=== PATIENT | female | born 1955 | race Caucasian/White ===

== ENCOUNTER 2019-11-03 07:41 | Outpatient (CLI) | payer OTHER ==
[2019-11-03] MEDS ORDERED: Morphine 2 MG/ML SYRINGE ONE (11:24)
[2019-11-03] MEDS ORDERED: Sodium Chloride 0.9% 10 ML ONE (11:24)
--- NOTE | 2019-11-03 14:05 | NM ---
EXAM: NM Hida Scan W Drug PROVIDED CLINICAL HISTORY: Right upper quadrant abdominal pain and pressure for 6 months. Pain is worse after eating. Reported c holelithiasis noted on outside ultrasound examination which is not available for evaluation. COMPARISON: None FINDINGS: There is normal uptake and excretion of radiotracer by the liver. Bowel activity is faintly visualize d in the proximal small bowel by 35 minutes with increasing activity within the bowel. No bowel activity is seen after 60 minutes of imaging. Additional imaging was performed after the administrati on of 2 mg of morphine sulfate, IV, and an additional 2 mCi of technetium 99m mebrofenin was also injected following morphine injection. Additional imaging was performed up to 30 minutes with increas ing activity in bowel. However, again, there is no uptake seen within the gallbladder. IMPRESSION: 1. Absence of gallbladder uptake suggesting cystic duct obstruction or cholecystitis. 2. No evidence of a common duct obstruction.
== END 2019-11-03 07:42 | disposition home or self-care (01) ==
LOC: NM 07:41
PROVIDERS: ATTEND Internal Medicine
DX: K80.80 Other cholelithiasis without obstruction (principal); R93.2 Abnormal findings on diagnostic imaging of liver and biliary tract
CPT/HCPCS: 78227; A9537; J2270

== ENCOUNTER 2019-11-03 18:32 | Observation (INO) | payer OTHER ==
[2019-11-03] MEDS ORDERED: Ondansetron PF 4 MG/2 ML Vial ONE (19:00)
[2019-11-03] MEDS ORDERED: Morphine 4 MG/ML VIAL ONE ×2 (19:00→22:55)
[2019-11-03 19:18] LABS: #Basophils 0.1 thou/uL (0.0-0.2); #Eosinphils 0.1 thou/uL (0.0-0.7); #Lymphocytes 2.4 thou/uL (1.20-3.40); #Monocytes 0.7 thou/uL (0.11-0.59); #Neutrophils 5.6 thou/uL (1.40-6.50); %Eosinophils 0.9 % (0.0-10.0); %Lymphocytes 27.3 % (21.0-51.0); %Monocytes 7.4 % (0.0-10.0); %Neutrophils 63.4 % (42.0-75.0); Mean Corpuscular HGB CONC 33.1 g/dL (32.0-36.0); Mean Corpuscular Hemoglobin 29.1 pg (27.0-31.0); Mean Corpuscular Volume 87.9 fL (78.0-98.0); Mean Platelet Volume 8.1 fL (7.4-10.4); Platelet Count 298 thou/uL (130-400); Red Blood Cell (RBC) Count 4.48 mill/uL (4.20-5.40); White Blood Cell (WBC) Count 8.8 thou/uL (4.8-10.8)
[2019-11-03 19:43] LABS: ALT (SGPT) 14 U/L (8-55); AST (SGOT) 19 U/L (5-34); Albumin 4.2 g/dL (3.4-4.8); Alkaline Phosphatase 63 U/L (40-110); Anion Gap 12 mmol/L (10-20); BUN (Urea Nitrogen) 23 mg/dL (9.8-20.1); Bilirubin, Total 0.4 mg/dL (0.2-1.2); Calc. Creatinine Clearance 0 mL/min (70-130); Calcium 9.3 mg/dL (7.8-10.44); Carbon Dioxide 22 mmol/L (23-31); Chloride 108 mmol/L (98-107); Estimated GFR-MDRD 69; Globulin 3.3 g/dL (2.4-3.5); Glucose 97 mg/dL (80-115); Lipase 18 U/L (8-78); Potassium 3.9 mmol/L (3.5-5.1); Protein, Total 7.5 g/dL (6.0-8.3); Sodium 138 mmol/L (136-145)
[2019-11-03 20:09] LABS: Bilirubin Negative (Negative); Blood, Urine 2+ (Negative); Clarity Turbid (Clear); Glucose, Urine (Dipstick) Normal (Negative); Leukocyte 500 Leu/uL (Negative); Nitrite Negative (Negative); Protein, Urine (Dipstick) 20 mg/dL (Neg-Trace); Squamous Epithelial 0-3 HPF (0-3); WBC/HPF Greater than 50 HPF (0-3)
[2019-11-03 20:30] LABS: Bacteria/HPF 2+ HPF (None Seen); Mucous/LPF 2+ LPF (<2+)
--- NOTE | 2019-11-03 20:44 | PDOC.GSCN ---
Surgery Consult: HPI - Consult details Date: 11/03/19 Time: 20:42 Reason for consult: abdominal pain History of present illness: 11/03/19 20:42 63yo female with 6 month history of RUQ pain associated with nausea. The pain is described as stabbing and radiating to the back. Over the last week it has become progressively worse. She presented to her PCP and underwent a HIDA scan earlier in the day that demonstrated an occluded cystic duct. Since that time, her pain has been much more severe and her nausea has been persistent. Surgery Consult: ROS - Review of Systems All systems: 10 systems reviewed and no additional complaints unless stated below. 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 negative: moderate distress, severe distress, well nourished, moderate pain, no pain, severe pain, cachectic, chronically ill, obese, other Eye: negative: normal ocular movement, PERRL, pale, icteric, deviation, loss of movement, other ENT: negative: no congestion, no hearing loss, normal mucosa, normal nares, normal pinna, decreased hearing, deviated nasal septum, nasal discharge, poor chcf, dentures, mucosal exudate, other Neck: negative: no bruits, no lymphadectomy, no masses, no deja distention, trachea midline, diffuse goiter, deviated trachea, limited ROM, other Respiratory: negative: clear to auscultation, clear to percussion, normal expansion, normal respiratory effort, other Abdomen: soft, tender (RUQ, positive holcomb's sign) Hernia: none Neurologic: negative: normal coordination, normal sensation, disoriented, combative, deep tendon reflexes, confused, memory loss, other Musculoskeletal: other (well healed left shoulder incision). negative: normal gait, normal posture Psychiatric: negative: memory intact, oriented to time, oriented to person, oriented to place, speech is normal, other Surgery Consult: Meds - Medications Medications: Plavix, levothroxine, Vitamin D, Methadone - Allergies Allergies/Adverse Reactions: Allergies Allergy/AdvReac Type Severity Reaction Status Date / Time NSAIDS (Non-Steroidal Allergy Severe Hives Verified 11/03/19 20:47 Anti-Inflamma [id number] Reductase Allergy Severe Hives Verified 11/03/19 20:47 Inhibitor Surgery Consult: Results - Labs Result Diagrams: 11/03/19 19:06 11/03/19 19:06 Lab results: Laboratory Results WBC 8.8 thou/uL (4.8-10.8) 11/03/19 19:06 RBC 4.48 mill/uL (4.20-5.40) 11/03/19 19:06 Hgb 13.0 g/dL (12.0-16.0) 11/03/19 19:06 Hct 39.4 % (36.0-47.0) 11/03/19 19:06 MCV 87.9 fL (78.0-98.0) 11/03/19 19:06 MCH 29.1 pg (27.0-31.0) 11/03/19 19:06 MCHC 33.1 g/dL (32.0-36.0) 11/03/19 19:06 RDW 12.0 % (11.5-14.5) 11/03/19 19:06 Plt Count 298 thou/uL (130-400) 11/03/19 19:06 MPV 8.1 fL (7.4-10.4) 11/03/19 19:06 Neutrophils % 63.4 % (42.0-75.0) 11/03/19 19:06 Lymphocytes % 27.3 % (21.0-51.0) 11/03/19 19:06 Monocytes % 7.4 % (0.0-10.0) 11/03/19 19:06 Eosinophils % 0.9 % (0.0-10.0) 11/03/19 19:06 Basophils % 1.0 % (0.0-1.0) 11/03/19 19:06 Neutrophils # 5.6 thou/uL (1.40-6.50) 11/03/19 19:06 Lymphocytes # 2.4 thou/uL (1.20-3.40) 11/03/19 19:06 Monocytes # 0.7 thou/uL (0.11-0.59) H 11/03/19 19:06 Eosinophils # 0.1 thou/uL (0.0-0.7) 11/03/19 19:06 Basophils # 0.1 thou/uL (0.0-0.2) 11/03/19 19:06 Sodium 138 mmol/L (136-145) 11/03/19 19:06 Potassium 3.9 mmol/L (3.5-5.1) 11/03/19 19:06 Chloride 108 mmol/L (98-107) H 11/03/19 19:06 Carbon Dioxide 22 mmol/L (23-31) L 11/03/19 19:06 Anion Gap 12 mmol/L (10-20) 11/03/19 19:06 BUN 23 mg/dL (9.8-20.1) H 11/03/19 19:06 Creatinine 0.83 mg/dL (0.6-1.1) 11/03/19 19:06 Estimated GFR (MDRD) 69 11/03/19 19:06 Glucose 97 mg/dL (80-115) 11/03/19 19:06 Calcium 9.3 mg/dL (7.8-10.44) 11/03/19 19:06 Total Bilirubin 0.4 mg/dL (0.2-1.2) 11/03/19 19:06 AST 19 U/L (5-34) 11/03/19 19:06 ALT 14 U/L (8-55) 11/03/19 19:06 Alkaline Phosphatase 63 U/L (40-110) 11/03/19 19:06 Serum Total Protein 7.5 g/dL (6.0-8.3) 11/03/19 19:06 Albumin 4.2 g/dL (3.4-4.8) 11/03/19 19:06 Globulin 3.3 g/dL (2.4-3.5) 11/03/19 19:06 Albumin/Globulin Ratio 1.3 g/dL (1.2-2.2) 11/03/19 19:06 Lipase 18 U/L (8-78) 11/03/19 19:06 Urine Color Yellow (Yellow) 11/03/19 19:53 Urine Clarity Turbid (Clear) A 11/03/19 19:53 Urine pH 5.0 (5.0-9.0) 11/03/19 19:53 Ur Specific [place]well 1.030 (1.002-1.036) 11/03/19 19:53 Urine Protein 20 mg/dL (Neg-Trace) 11/03/19 19:53 Urine Glucose (UA) Normal mg/dL (Negative) 11/03/19 19:53 Urine Ketones 10 mg/dL (Negative) A 11/03/19 19:53 Urine Blood 2+ (Negative) A 11/03/19 19:53 Urine Nitrite Negative (Negative) 11/03/19 19:53 Urine Bilirubin Negative (Negative) 11/03/19 19:53 Urine Urobilinogen 2.0 mg/dL (Less than 2) A 11/03/19 19:53 Ur Leukocyte Esterase 500 Herbert/uL (Negative) A 11/03/19 19:53 Urine RBC 11-20 HPF (0-3) A 11/03/19 19:53 Urine WBC Greater than 50 HPF (0-3) A 11/03/19 19:53 Ur Squamous Epith Cells 0-3 HPF (0-3) 11/03/19 19:53 Urine Bacteria 2+ HPF (None Seen) A 11/03/19 19:53 Urine Mucus 2+ LPF (<2+) A 11/03/19 19:53 - Radiology Interpretation Other Additional comments: HIDA scan demonstrates cystic duct occlusion Surgery Consult: A/P - Problem (1) Acute cholecystitis Current Visit: Yes Code(s): K81.0 - ACUTE CHOLECYSTITIS Status: Acute - Plan Plan: Place in observation Plan for laparoscopic cholecystectomy tomorrow. Consent obtained.
[2019-11-03] MEDS ORDERED: Ondansetron ODT 4 MG TAB PO PRN (20:54)
[2019-11-03] MEDS ORDERED: HYDROcodone/Acetaminophen 5/325 mg Tablet PO PRN (20:54)
[2019-11-03] MEDS ORDERED: Ondansetron PF 4 MG/2 ML Vial IVP PRN (20:54)
--- NOTE | 2019-11-03 21:24 | RAD ---
EXAM: Chest Two Views 11/03/2019 9:21 PM HISTORY: Preoperative evaluation COMPARISON: None. FINDINGS: Heart: Normal in size and contour. Pulmonary vessels: Normal. Costophrenic angles: Clear. Lungs: No acute airspace consolidation. Pneumothorax: None. Osseous structures:There is a calcified lesion within the proximal right humeral metaphysis without g ross evidence of surrounding bone destruction most consistent with a low-grade chondroid lesion. Additional findings: None. IMPRESSION: No significant acute intrathoracic disease.
[2019-11-04 01:21] VITALS: BMI 25.7
[2019-11-04] MEDS ORDERED: Acetaminophen 325 MG TAB PO PRN (01:29)
[2019-11-04] MEDS ORDERED: Morphine 2 MG/ML SYRINGE SLOW IVP PRN (01:33)
[2019-11-04] MEDS ORDERED: Morphine 4 MG/ML VIAL SLOW IVP PRN (01:33)
[2019-11-04] MEDS ORDERED: Lidocaine 1% PF 5 ML VIAL ONE (10:18)
[2019-11-04] MEDS ORDERED: Ondansetron PF 4 MG/2 ML Vial ONE ×3 (10:18→13:51)
[2019-11-04] MEDS ORDERED: Rocuronium Bromide 10 MG/ML (10ML VIAL) ONE (10:18)
[2019-11-04] MEDS ORDERED: PROPOFOL 200 MG/20 ML VIAL ONE (10:18)
[2019-11-04] MEDS ORDERED: Dexamethasone 20 MG/5 ML VIAL ONE (10:18)
[2019-11-04] MEDS ORDERED: ePHEDrine/0.9% NaCl/PF SYRINGE 50 mg/10 ml ONE (10:18)
[2019-11-04] MEDS ORDERED: Iothalamate Meglumine 60% 50 ML VIAL FS ONE (11:06)
[2019-11-04] MEDS ORDERED: Lidocaine 1% w/Epinephrine 1:100K 20 ML VIAL ONE (11:06)
[2019-11-04] MEDS ORDERED: Iopamidol 0 ML ONE (11:06)
[2019-11-04] MEDS ORDERED: Bupivacaine 0.25% HCL 30 ML VIAL ONE (11:06)
[2019-11-04] MEDS ORDERED: Fentanyl 100 MCG/2 ML VIAL ONE ×6 (11:18→14:29)
[2019-11-04] MEDS ORDERED: Ondansetron HCl/PF 4 MG/2 ML Vial IVP PRN (13:24)
[2019-11-04] MEDS ORDERED: PACU-Morphine 4MG/ML VIAL SLOW IVP PRN (13:24)
[2019-11-04] MEDS ORDERED: Promethazine HCl 25 MG/ML VIAL SLOW IVP PRN (13:24)
[2019-11-04] MEDS ORDERED: Promethazine HCl 25 MG/ML VIAL IM PRN (13:24)
[2019-11-04] MEDS ORDERED: HYDROmorphone 2 MG/ML VIAL SLOW IVP PRN (13:24)
[2019-11-04] MEDS ORDERED: Promethazine HCl 25 MG/ML VIAL ONE (13:32)
[2019-11-04 15:19] VITALS: TEMP 97.4
--- NOTE | 2019-11-04 15:23 | PDOC.BPN ---
- Brief Progress Note DOS: 11/04/19 0745 SUBJECTIVE: Doing well, no acute complaints OBJECTIVE: Vital Signs (12 hours) Temp Pulse Resp BP BP Pulse Ox 11/04/19 14:45 97.4 F L 72 18 146/78 H 100 11/04/19 08:00 97.7 F 72 18 117/67 97 11/04/19 04:00 98 F 74 16 101/63 97 Weight Admit Weight 149 lb 14.629 oz Weight 149 lb 14.629 oz EXAM: Alert and oriented, NAD CTAB ABD S/ND, TTP RUQ positive Junior's sign No new labs A/P 63yo F with acute cholecystitis. Plan for lap robert this morning.
--- NOTE | 2019-11-04 15:26 | PDISCHARGE ---
Discharge - Patient Instructions Pre-Printed Education: Laparoscopic Cholecystectomy, Care After, [id number] Additional Instructions: Activity as tolerated May shower Regular diet - Referrals and PCP Follow-Up Referrals and PCP Follow-Up: Nicko Dunbar MD [Active] - 10 Days (Call to make an appointment) Yomaira Perry MD [Primary Care Provider] - - Activity Instructions Activity:: Activity as Tolerated - Nourishment Instructions Nourishment:: Regular Diet - IV Therapy Instructions IV Therapy:: Not Applicable
[2019-11-04 16:22] VITALS: BP 128/64
--- NOTE | 2019-11-04 21:39 | DIS ---
DATE OF ADMISSION: 11/03/2019 DATE OF DISCHARGE: 11/04/2019 ADMISSION DIAGNOSIS: Acute cholecystitis. DISCHARGE DIAGNOSIS: Acute cholecystitis. OPERATIVE PROCEDURES: Laparoscopic cholecystectomy with intraoperative cholangiogram. HOSPITAL COURSE: The patient presented to the emergency department with right upper quadrant pain. She had recently underwent a HIDA scan earlier that day at the direction of her primary care provider. She was found to have a grossly normal laboratory analysis; however, she had physical exam findings consistent with acute cholecystitis. Given her positive HIDA scan, she was placed on observation overnight and scheduled for surgery the following morning. On November 04, 2019, she was taken to the operating room, where she underwent laparoscopic cholecystectomy with intraoperative cholangiogram. Her cholangiogram showed massively dilated common bile duct (previously reported as chronic) with no filling defects. Postoperatively, she was returned to the floor. On the floor, she has ambulated early in her postoperative course. She was advanced to a regular diet. Later on postoperative day #0, she was tolerating regular diet, ambulating independently, voiding spontaneously, and her pain was well controlled with analgesia. She was appropriate for discharge. DISCHARGE DISPOSITION: Home. DISCHARGE MEDICATIONS: 1. Resume home vitamin D3. 2. Resume home Plavix. 3. Resume home levothyroxine. 4. Resume home methadone. 5. Resume home meclizine. 6. Start tramadol 50 mg p.o. every 6 hours as needed for pain (hold methadone dose when taking tramadol). DISCHARGE INSTRUCTIONS: 1. May shower. 2. Regular diet. 3. Contact the Surgery Clinic or report to the emergency department for increasing abdominal pain, nausea, vomiting, or high heart rate. 4. Follow up with Dr. Dunbar in 1 to 2 weeks. Please call for an appointment ([phone]). Job ID: [id number]
[2019-11-05] MEDS ORDERED: Enoxaparin Sodium 40 MG/0.4 ML SYRINGE SC SCH (09:00)
--- NOTE | 2019-11-05 16:19 | OP ---
DATE OF PROCEDURE: 11/04/2019 ANESTHESIA: General endotracheal. PREOPERATIVE DIAGNOSIS: Acute cholecystitis. POSTOPERATIVE DIAGNOSIS: Acute cholecystitis. INDICATIONS: 63-year-old female with acute cholecystitis. DESCRIPTION OF PROCEDURE: The patient was brought to the operating room and positioned supine on the operating room table. After induction of general, endotracheal anesthesia, the patient was prepared and draped in the usual fashion. Prior to beginning the procedure, a complete time-out was performed with all members of the operative team being present and in agreement. Access to the abdomen was obtained in the right upper quadrant using Optiview trocar under direct visualization. The abdomen was insufflated. The abdomen was inspected and inflammatory changes were noted around the gallbladder. Additional trocars were placed under direct visualization. The gallbladder was found to be densely adherent to the surrounding omentum. This was taken down gently with electrocautery. The fundus of the gallbladder was retracted and the patient was noted to have an abnormally large common bile duct. The fundus of the gallbladder and the triangle of Calot were dissected until the critical view of safety was achieved. A Lfoton catheter was used to occlude the fundus of the gallbladder and a cholangiogram performed. This demonstrated grossly dilated common bile duct and cystic duct. There was no evidence of obstruction. Once the cholangiogram was complete, the cystic artery was divided between clips. The cystic duct was also divided between clips. Given its large diameter, 2 PDS Endoloop's were also applied. The gallbladder was then removed from the liver bed with electrocautery. At the completion of case, all sponge and instruments counts were correct. ESTIMATED BLOOD LOSS: 20 mL. SPECIMEN: Gallbladder. INTRAOPERATIVE BLOOD TRANSFUSIONS: None. COMPLICATIONS: None. DISPOSITION: The patient was transported to the postoperative recovery unit in good condition. Job ID: [id number]
--- NOTE | 2019-11-06 07:56 | RAD ---
Intraoperative cholangiogram 4 views: DATE: 11/06/2019 HISTORY: 63-year-old female undergoing cholecystectomy. FINDINGS: The first 2 images of the right side of the abdomen demonstrate no contrast in the biliary system. Th ird image demonstrates early filling of dilated cystic duct. The fourth image demonstrates a large number of filling defects within a significantly dilated cystic duct. The common bile duct, common he patic duct, and right hepatic duct, and its branches, are also dilated. No filling defect within common bile duct. Contrast in duodenum. Collection of contrast to the left of origin of common hepati c duct within a dilated viscus of unknown identity. Apparent stenosis of the inferior portion of the right hepatic duct. Contrast is too faint in the common hepatic duct to evaluate for filling defe cts. IMPRESSION: 1. Choledocholithiasis with large number of gallstones in a significantly dilated cystic duct. 2. Apparent stenosis of inferior portion of right hepatic duct. 3. Diffuse dilation of all visualized, opacified portions of the biliary tree.
== END 2019-11-04 18:15 | disposition home or self-care (01) ==
LOC: ERS 18:32 → 3SE 21:08
PROVIDERS: ADMIT Surgery; ATTEND Surgery
PROC: 0FT44ZZ Resection of Gallbladder, Percutaneous Endoscopic Approach (ICD-10-PCS; principal; 2019-11-04)
PROC: BF121ZZ Fluoroscopy of Gallbladder using Low Osmolar Contrast (ICD-10-PCS; 2019-11-04)
DX: K80.12 Calculus of gallbladder with acute and chronic cholecystitis without obstruction (principal); E03.9 Hypothyroidism, unspecified; F17.290 Nicotine dependence, other tobacco product, uncomplicated; G89.29 Other chronic pain; M54.9 Dorsalgia, unspecified; Z79.899 Other long term (current) drug therapy; Z86.73 Personal history of transient ischemic attack (TIA), and cerebral infarction without residual deficits; Z88.0 Allergy status to penicillin; Z88.6 Allergy status to analgesic agent; Z88.8 Allergy status to other drugs, medicaments and biological substances
CPT/HCPCS: 47532; 71046; 80053; 81003; 81015; 83690; 85025; 88304; 96374; 96375; 96376; G0378; J0690; J1100; J2001; J2270; J2405; J2550; J2704; J3010; Q9967; S0020

== ENCOUNTER 2019-11-30 01:02 | Observation (INO) | payer OTHER ==
[2019-11-30] MEDS ORDERED: Ondansetron PF 4 MG/2 ML Vial ONE (01:13)
[2019-11-30] MEDS ORDERED: Morphine 4 MG/ML VIAL ONE ×2 (01:36→02:25)
[2019-11-30 01:53] LABS: #Basophils 0.1 thou/uL (0.0-0.2); #Eosinphils 0.1 thou/uL (0.0-0.7); #Lymphocytes 1.9 thou/uL (1.20-3.40); #Neutrophils 13.4 thou/uL (1.40-6.50); %Basophils 0.5 % (0.0-1.0); %Eosinophils 0.3 % (0.0-10.0); %Lymphocytes 11.6 % (21.0-51.0); %Monocytes 5.9 % (0.0-10.0); %Neutrophils 81.7 % (42.0-75.0); Hemoglobin 13.1 g/dL (12.0-16.0); Mean Corpuscular HGB CONC 34.9 g/dL (32.0-36.0); Mean Corpuscular Hemoglobin 30.5 pg (27.0-31.0); Mean Corpuscular Volume 87.2 fL (78.0-98.0); Mean Platelet Volume 8.5 fL (7.4-10.4); Platelet Count 337 thou/uL (130-400); RBC Distribution Width 12.1 % (11.5-14.5); Red Blood Cell (RBC) Count 4.31 mill/uL (4.20-5.40); White Blood Cell (WBC) Count 16.4 thou/uL (4.8-10.8)
[2019-11-30 01:56] LABS: Bacteria/HPF None Seen HPF (None Seen); Bilirubin Negative (Negative); Blood, Urine 1+ (Negative); Clarity Turbid (Clear); Glucose, Urine (Dipstick) Normal (Negative); Leukocyte 500 Leu/uL (Negative); Nitrite Negative (Negative); Protein, Urine (Dipstick) 10 mg/dL (Neg-Trace); Squamous Epithelial None Seen HPF (0-3); Urobilinogen 12 mg/dL (Less than 2); WBC/HPF 21-50 HPF (0-3)
[2019-11-30 02:04] LABS: ALT (SGPT) 201 U/L (8-55); AST (SGOT) 460 U/L (5-34); Albumin 4.2 g/dL (3.4-4.8); Alkaline Phosphatase 100 U/L (40-110); Anion Gap 15 mmol/L (10-20); BUN (Urea Nitrogen) 19 mg/dL (9.8-20.1); Calc. Creatinine Clearance 0 mL/min (70-130); Carbon Dioxide 24 mmol/L (23-31); Chloride 103 mmol/L (98-107); Estimated GFR-MDRD 68; Globulin 3.6 g/dL (2.4-3.5); Glucose 169 mg/dL (80-115); Lipase 32 U/L (8-78); Potassium 3.6 mmol/L (3.5-5.1); Protein, Total 7.8 g/dL (6.0-8.3); Sodium 138 mmol/L (136-145)
[2019-11-30] MEDS ORDERED: cefTRIAXone\\ROCEPHIN 1 GM VIAL ONE (02:15)
[2019-11-30] MEDS ORDERED: Promethazine HCl 25 MG/ML VIAL ONE (02:25)
[2019-11-30] MEDS ORDERED: Fentanyl 100 MCG/2 ML VIAL ONE (04:36)
[2019-11-30 04:59] VITALS: BMI 25.7
[2019-11-30] MEDS ORDERED: Ondansetron PF 4 MG/2 ML Vial IVP PRN (05:04)
[2019-11-30] MEDS ORDERED: Ondansetron ODT 4 MG TAB SL PRN ×2 (05:04→17:57)
[2019-11-30] MEDS ORDERED: Sodium Chloride 0.9% 1,000 ML IV SCH ×2 (05:15→10:31)
[2019-11-30] MEDS: Morphine 4 MG/ML VIAL SLOW IVP PRN ×4 (05:46→20:22)
--- NOTE | 2019-11-30 07:59 | CT ---
PRELIMINARY REPORT/[facility]/EMERGENCY AFTER HOURS PROCEDURE: EXAM: CT Abdomen and Pelvis with Intravenous Contrast CLINICAL HISTORY: ER 2... Reports epigastric abd pain radiating outward with associated n/v since 1999 today. Denies f ever, diarrhea, or urinary symptoms. Pt had cholecystectomy 1 month ago secondary to cholecystitis. P t also had a fall 1 week ago. Surgical hx of hysterectomy; appendectomy TECHNIQUE: Axial computed tomography images of the abdomen and pelvis with intravenous contrast. CONTRAST: With; ISOVUE 370, 80ml COMPARISON: None provided. FINDINGS: LUNG BASES: No basilar airspace consolidation or pleural effusion. LIVER: Unremarkable. GALLBLADDER AND BILE DUCTS: The gallbladder is absent. Marked intrahepatic biliary duct dilatation is present. The common bile duct measures 1.5 cm. PANCREAS: Unremarkable. SPLEEN: Unremarkable. ADRENAL GLANDS: Unremarkable. KIDNEYS, URETERS, AND BLADDER: 1 mm calculus lower pole right kidney. No hydronephrosis of either kid radu. Bladder is normal. STOMACH AND BOWEL: No obstruction. No wall thickening. No CT evidence of colitis or acute diverticuli tis. APPENDIX: Appendix is absent. PERITONEUM: No free fluid. No free air. LYMPH NODES: No lymphadenopathy. REPRODUCTIVE: Uterus is absent. VASCULATURE: No aortic aneurysm. BONES: No fracture or suspicious osseous abnormality. ABDOMINAL WALL AND SOFT TISSUES: Unremarkable. IMPRESSION: Biliary duct dilatation. This may be postprocedural in nature. However, there are no comparison exams to determine stability. ELECTRONICALLY SIGNED BY: Gabriella Soto MD Nov 30, 2019 3:09:58 AM [employer] This report is intended for review by the ordering physician only, in accordance of law. If you recei ve this report in error, please call [facility] at [phone]. FINAL REPORT EMERGENCY AFTER HOURS CT ABDOMEN AND PELVIS WITH CONTRAST: FINDINGS/IMPRESSION: I agree with the findings and impression given in the preliminary report per [facility] physici an. There is enlargement of the common bile duct and central intrahepatic biliary tree. This may be a res ervoir effect from prior cholecystectomy. Correlate with LFTs.
--- NOTE | 2019-11-30 12:08 | HP ---
CHIEF COMPLAINT: Right upper quadrant abdominal pain. HISTORY OF PRESENT ILLNESS: The patient is a 64-year-old female, who underwent a laparoscopic cholecystectomy with cholangiogram on November 04. She was discharged later that day and did well for about a week. Then, she had an episode of severe pain, thought to be just postoperative, but then this past few days, she had recurrence of that pain that was severe and so she came to the emergency room. She reports nausea and vomiting. No jaundice. PAST MEDICAL HISTORY: Significant for hypothyroidism, history of CVA in 2017, and history of DVT in the left leg. PAST SURGICAL HISTORY: Laparoscopic cholecystectomy, nine needs surgeries on the right, seven on the left; appendectomy; left shoulder surgery; two back surgeries; foot surgery; and facial surgery. MEDICATIONS: 1. Vitamin D. 2. Levothyroxine. 3. She is on Plavix, but she has been off for a week. ALLERGIES: SHE HAS ALLERGIES TO PENICILLIN, PREDNISONE, NON-STEROIDALS, TYLENOL, AND STATINS. PHYSICAL EXAMINATION: VITAL SIGNS: Temperature 97.9, pulse 89, and blood pressure 149/82. GENERAL: She is awake, alert, in minimal distress. HEENT: No jaundice. LUNGS: Clear. HEART: Regular rate and rhythm. ABDOMEN: Soft. Mild tenderness in the right upper quadrant. Incisions are healing well. LABORATORY DATA: White count is 16, H and H of 13 and 37, and platelet count 337. Electrolytes show elevated glucose at 169. T-bili was normal at 1.0, AST of 460, and ALT of 201. IMAGING DATA: She had a CT scan of the abdomen that shows extrahepatic biliary dilatation. She did have an intraoperative cholangiogram that showed multiple filling defects within the dilated biliary tree that were consistent with choledocholithiasis. ASSESSMENT: Possible choledocholithiasis. PLAN: GI consultation for possible ERCP. Job ID: [id number]
--- NOTE | 2019-11-30 12:15 | CON ---
DATE OF CONSULTATION: 11/30/2019 CHIEF COMPLAINT: Abdominal pain. HISTORY OF PRESENT ILLNESS: Ms. Angelica Hernandez is a 64-year-old woman, who underwent laparoscopic cholecystectomy back on 11/04/2019. She presented last night around 8:00 p.m. with severe aching epigastric, initially periumbilical pain then located more to the right upper quadrant and radiated to her right back. The pain has been constant and hurts with any movement and has been severe, which she rates 10/10 in severity. She vomited a few times when the pain initially started last night. She had subjective fever and was noted to have an elevated white blood cell count on presentation. She has had no diarrhea, constipation, or blood in the stool. The pain is similar to the pain that she had prior to her gallbladder surgery. She underwent laparoscopic cholecystectomy on 11/04/2019. Intraoperative cholangiogram at that time showed what appears to be filling defects in the common bile duct and a question of a stricture over in the right hepatic duct. The duct was dilated, but her liver tests were normal at the time. She has been given morphine for the pain here with some improvement. PAST MEDICAL HISTORY: 1. She has chronic pain and is on chronic opioids for that. She had a stroke in 2017 and DVT while she was on some type of blood thinner at that time. She has been on Plavix since then due to the history of stroke. A week ago, she fell, has what sounds more like a syncopal episode and broke her nose and hit her head. She was found to have some "minute amount of bleeding on the brain." She was admitted to the intensive care unit and the only intervention at that time was to hold her Plavix. She has been off the Plavix now for a week that hospitalization was at [facility]. 2. Hypothyroidism. PAST SURGICAL HISTORY: Knee surgery. She had a face surgery, shoulder surgery, foot surgery, and laparoscopic cholecystectomy recently. SOCIAL HISTORY: Rare alcohol use. She vapes. No drugs. FAMILY HISTORY: Negative for GI malignancy. MEDICATIONS: Prior to admission: 1. Plavix has been held for the last week. 2. Levothyroxine. 3. Methadone 10 mg daily. 4. Tramadol as needed. ALLERGIES: NSAIDS, ASPIRIN, AND STATIN. REVIEW OF SYSTEMS: Negative x10 systems reviewed, except as stated in the history of present illness. PHYSICAL EXAMINATION: VITAL SIGNS: Temperature is 97.9, pulse 89, and blood pressure 149/82. GENERAL: She is in no acute distress. Alert and oriented x3. LUNGS: Clear to auscultation bilaterally. HEART: Regular rate and rhythm without murmur. ABDOMEN: Tender in the right upper quadrant to light palpation. She is nontender in the left abdomen without guarding. Her bowel sounds are present. EXTREMITIES: No lower extremity edema. She has bruising around her eyes. She has no cervical or supraclavicular lymphadenopathy. HEENT: Eyes have no scleral icterus. Her oropharynx is clear without lesions. LABORATORY DATA: White blood cell count 16.4, hemoglobin 13.1, platelets 337. Creatinine 0.84. Bilirubin 1.0, AST 460, ALT 201, alkaline phosphatase 100, albumin 4.2, lipase 32. Her labs back from November 03, 2019 showed a bilirubin of 0.4, AST of 19, ALT of 14, and alkaline phosphatase of 63. IMAGING: Showed a CT scan of the abdomen and pelvis, which showed dilation of the intrahepatic ducts as well as the common bile duct. IMPRESSION: 1. Choledocholithiasis. The patient presents with elevated transaminases and abrupt onset of right upper quadrant abdominal pain. Review of the intraoperative cholangiogram suggests filling defects and a question of a stricture up in the right hepatic duct. Her white blood cell count is elevated. Her bilirubin and alkaline phosphatase, however, are normal. If she truly had a chronic stricture in her bile duct, I would not expect a normal alkaline phosphatase. Also if she had cholangitis, this would be unlikely in the setting of a normal bilirubin. At this point, I will request an MRI to better delineate the anatomy and particularly regarding a question of stricture in the right hepatic system prior to proceeding with endoscopic retrograde cholangiopancreatography. 2. Recent fall with a reported intracranial hemorrhage, for which she was admitted to the ICU a week ago at [facility]. Her Plavix has been held for the last week. 3. Chronic pain, on chronic opioids. RECOMMENDATIONS: 1. MRCP now. 2. Anticipate ERCP to follow. 3. She receive ceftriaxone 1 g at 2 o'clock this morning. We will continue ceftriaxone at this time. Job ID: [id number]
--- NOTE | 2019-11-30 13:17 | MRI ---
MRI Abdomen W WO Con History: Abdominal pain Comparison: CT abdomen and pelvis same day Findings: Multiplanar multisequence MRI of the abdomen was performed prior to and after the intraveno us administration of contrast. No significant pleural effusion. There is a intrahepatic or extrahepatic biliary dilatation to the le wan of the ampulla for which appears be a small stricture. No choledocholithiasis. No abnormal biliary enhancement. No mass. No evidence for cholangitis. Trace subcapsular collection along the right hepatic border axial image 22 series 22 likely sequelae of prior surgery. The aortic contour is normal. The spleen is normal with a small splenule. No abnormal enhancing pancr eatic mass. No pancreatic ductal dilatation. No pancreatic of biliary mild junction. Low insertion of the cystic duct. The cystic duct is dilated. No evidence for bile leak. Adrenal glands unremarkable. Background bone marrow signal is maintained. No dilated loops of bowel in the abdomen. Impression: 1. Intrahepatic and extra hepatic biliary dilatation as well as dilatation of the cystic duct which h as a low insertion. No obstructing mass or choledocholithiasis. There is focal narrowing of the common bile duct near the ampulla just before the pancreatic duct insertion. ERCP recommended with di latation and possible sphincterotomy as necessary. No pancreatic ductal dilatation or pancreaticobiliary maljunction. 2. No abnormal biliary enhancement to suggest cholangitis. 3. Trace peripherally enhancing collection along the right hepatic capsule axial image 22 of series 2 2 likely sequelae of recent surgery. This is likely less than 2 mL volume of fluid. 4. No other abnormality within the abdomen.
[2019-11-30] MEDS ORDERED: Iopamidol-370 76% 500 ML 1 ML ONE (13:24)
[2019-11-30] MEDS: Sodium Chloride 0.9% 1,000 ML IV SCH (17:28)
[2019-11-30] MEDS ORDERED: Morphine 4 MG/ML VIAL SLOW IVP PRN (17:58)
[2019-11-30] MEDS: Ondansetron PF 4 MG/2 ML Vial SLOW IVP PRN (22:04)
[2019-12-01] MEDS: Morphine 4 MG/ML VIAL SLOW IVP PRN ×2 (03:08→14:48)
[2019-12-01] MEDS: Sodium Chloride 0.9% 1,000 ML IV SCH ×3 (03:09→20:04)
[2019-12-01 05:22] LABS: #Eosinphils 0.2 thou/uL (0.0-0.7); #Neutrophils 9.7 thou/uL (1.40-6.50); %Basophils 0.4 % (0.0-1.0); %Lymphocytes 8.5 % (21.0-51.0); %Monocytes 8.5 % (0.0-10.0); %Neutrophils 80.6 % (42.0-75.0); INR-International Normal Ratio 1.2; Mean Corpuscular HGB CONC 33.4 g/dL (32.0-36.0); Mean Corpuscular Hemoglobin 29.8 pg (27.0-31.0); Mean Corpuscular Volume 89.4 fL (78.0-98.0); Mean Platelet Volume 8.3 fL (7.4-10.4); Platelet Count 229 thou/uL (130-400); Prothrombin Time 15.6 SEC (12.0-14.7); RBC Distribution Width 12.5 % (11.5-14.5); Red Blood Cell (RBC) Count 3.37 mill/uL (4.20-5.40)
[2019-12-01 05:57] LABS: ALT (SGPT) 295 U/L (8-55); AST (SGOT) 241 U/L (5-34); Albumin 3.2 g/dL (3.4-4.8); Alkaline Phosphatase 99 U/L (40-110); Anion Gap 13 mmol/L (10-20); BUN (Urea Nitrogen) 12 mg/dL (9.8-20.1); Bilirubin, Total 3.4 mg/dL (0.2-1.2); Calc. Creatinine Clearance 81 mL/min (70-130); Calcium 8.8 mg/dL (7.8-10.44); Carbon Dioxide 20 mmol/L (23-31); Chloride 108 mmol/L (98-107); Estimated GFR-MDRD 79; Globulin 2.8 g/dL (2.4-3.5); Glucose 93 mg/dL (80-115); Potassium 3.6 mmol/L (3.5-5.1); Sodium 137 mmol/L (136-145)
[2019-12-01] MEDS: Ondansetron PF 4 MG/2 ML Vial SLOW IVP PRN (08:41)
[2019-12-01] MEDS ORDERED: Iothalamate Meglumine 60% 50 ML VIAL FS ONE (11:20)
[2019-12-01] MEDS ORDERED: SUGAMMADEX SODIUM 200 MG/2 ML VIAL ONE (11:23)
[2019-12-01] MEDS ORDERED: Fentanyl 100 MCG/2 ML VIAL ONE ×2 (11:23→12:42)
[2019-12-01] MEDS ORDERED: PROPOFOL 200 MG/20 ML VIAL ONE (11:49)
[2019-12-01] MEDS ORDERED: Lidocaine 1% PF 5 ML VIAL ONE (11:49)
[2019-12-01] MEDS ORDERED: Rocuronium Bromide 10 MG/ML (10ML VIAL) ONE (11:49)
--- NOTE | 2019-12-01 12:32 | RAD ---
ERCP: 12/01/2019 COMPARISON: None HISTORY: Biliary dilatation FINDINGS: 4 images are provided. There is contrast media within a dilated common bile duct and within dilated intrahepatic biliary ducts. The distal CBD and mid CBD is not well assessed as it is not fully opacified with contrast media on the provided images. IMPRESSION: Nonspecific dilation of the intrahepatic and extrahepatic hepatic biliary tree as above.
--- NOTE | 2019-12-01 16:01 | OP ---
DATE OF PROCEDURE: 12/01/2019 PROCEDURE PERFORMED: Endoscopic retrograde cholangiopancreatography with sphincterotomy and balloon sweep of the bile duct. 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 DESCRIPTION OF PROCEDURE: Informed consent was obtained from the patient. She was sedated with general anesthesia. She was placed in the prone position, and the duodenoscope was advanced easily to the second portion of the duodenum. The ampulla was identified and appeared unremarkable. There was drainage of clear pancreatic fluid from the ampulla, but no bile was seen to drain from the ampulla. The wire was inserted through the ampulla and briefly accessed the pancreatic duct on one pass. The catheter was repositioned, and the common bile duct was easily selectively cannulated on the next attempt. Cholangiogram was performed. This revealed a markedly dilated common bile duct to 18 mm. Again, a low takeoff of a long cystic duct was noted. There was intrahepatic dilation. There was no stricture or abnormality in the more proximal bile duct. A complete sphincterotomy was performed. This resulted in rapid drainage of bile and contrast from the duct. The bile duct was swept with a 15 mm balloon, and a minimal amount of sludge was extracted, but overall, no discrete significant stone was present. The 15 mm balloon passed smoothly through the sphincterotomy. IMPRESSION: 1. Cholangiogram showing marked dilation of the common bile duct to 18 mm. There are dilated extrahepatic ducts and minimal dilation of intrahepatic ducts. There is a low takeoff of a long cystic duct. 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 2. A complete sphincterotomy was performed. Balloon sweep resulted in a minimal amount of sludge swept from the duct, but no significant focal stone. 3. There is no drainage of bile prior to the sphincterotomy, and following the sphincterotomy, there was rapid drainage of bile and contrast. 4. Occlusion cholangiogram confirms the duct to be clear. 5. A 15 mm balloon passes smoothly through the sphincterotomy. RECOMMENDATIONS: 1. Check her liver tests in the morning. 2. Advance her diet in a couple of hours if she has no further pain. 3. If she is doing well, she can likely discharge home tomorrow morning. Job ID: [id number]
[2019-12-01] MEDS ORDERED: METHadone HCl 10 MG TAB PO SCH (21:00)
[2019-12-02] MEDS: Sodium Chloride 0.9% 1,000 ML IV SCH ×2 (01:11→08:58)
[2019-12-02] MEDS ORDERED: Levothyroxine Sodium 50 MCG TAB PO SCH (06:00)
[2019-12-02 06:11] LABS: #Lymphocytes 0.9 thou/uL (1.20-3.40); #Monocytes 0.4 thou/uL (0.11-0.59); #Neutrophils 4.3 thou/uL (1.40-6.50); %Basophils 0.3 % (0.0-1.0); %Eosinophils 0.8 % (0.0-10.0); %Lymphocytes 15.4 % (21.0-51.0); %Monocytes 7.6 % (0.0-10.0); %Neutrophils 75.8 % (42.0-75.0); Hemoglobin 9.9 g/dL (12.0-16.0); Mean Corpuscular HGB CONC 34.2 g/dL (32.0-36.0); Mean Corpuscular Hemoglobin 30.2 pg (27.0-31.0); Mean Corpuscular Volume 88.4 fL (78.0-98.0); Mean Platelet Volume 8.2 fL (7.4-10.4); Platelet Count 208 thou/uL (130-400); RBC Distribution Width 12.4 % (11.5-14.5); Red Blood Cell (RBC) Count 3.28 mill/uL (4.20-5.40); White Blood Cell (WBC) Count 5.7 thou/uL (4.8-10.8)
[2019-12-02 06:33] LABS: ALT (SGPT) 180 U/L (8-55); AST (SGOT) 95 U/L (5-34); Albumin 3.2 g/dL (3.4-4.8); Alkaline Phosphatase 110 U/L (40-110); Anion Gap 14 mmol/L (10-20); BUN (Urea Nitrogen) 9 mg/dL (9.8-20.1); Bilirubin, Total 1.7 mg/dL (0.2-1.2); Calc. Creatinine Clearance 81 mL/min (70-130); Calcium 8.8 mg/dL (7.8-10.44); Carbon Dioxide 21 mmol/L (23-31); Chloride 105 mmol/L (98-107); Estimated GFR-MDRD 79; Globulin 2.7 g/dL (2.4-3.5); Glucose 90 mg/dL (80-115); Potassium 3.4 mmol/L (3.5-5.1); Protein, Total 5.9 g/dL (6.0-8.3); Sodium 137 mmol/L (136-145)
[2019-12-02 12:11] VITALS: BP 121/76; TEMP 99.8
--- NOTE | 2019-12-03 00:53 | EKG ---
Test Reason : Blood Pressure : / mmHG Vent. Rate : 080 BPM Atrial Rate : 080 BPM P-R Int : 110 ms QRS Dur : 070 ms QT Int : 380 ms P-R-T Axes : 003 010 034 degrees QTc Int : 438 ms Sinus rhythm with short MA Otherwise normal ECG Confirmed by FRANKY REYES ([id number]), features editor NICOLE WHEELER ([id number] on 12/03/2019 12:52:52 AM Referred By: Confirmed By:FRANKY REYES
--- NOTE | 2019-12-03 04:29 | DIS ---
DATE OF ADMISSION: 11/30/2019 DATE OF DISCHARGE: 12/02/2019 DISCHARGE DIAGNOSIS: Choledocholithiasis. PROCEDURES DURING ADMISSION: ERCP with sphincterotomy and MRCP. HOSPITAL COURSE: The patient was admitted. LFTs are elevated. Bile duct was distended. GI was consulted. MRCP showed possible filling defect. She underwent ERCP with sphincterotomy. Postprocedure, she feels great. No pain. She is tolerating diet. She is discharged home on her usual medications. Will follow up with me in 2 weeks. Job ID: [id number]
== END 2019-12-02 12:15 | disposition home or self-care (01) ==
LOC: ERS 01:02 → SURG B 03:43
PROVIDERS: ADMIT Surgery; ATTEND Surgery
PROC: 0F798ZZ Dilation of Common Bile Duct, Via Natural or Artificial Opening Endoscopic (ICD-10-PCS; principal; 2019-12-02)
DX: K80.51 Calculus of bile duct without cholangitis or cholecystitis with obstruction (principal); E03.9 Hypothyroidism, unspecified; F17.290 Nicotine dependence, other tobacco product, uncomplicated; G89.29 Other chronic pain; Z79.02 Long term (current) use of antithrombotics/antiplatelets; Z79.899 Other long term (current) drug therapy; Z86.718 Personal history of other venous thrombosis and embolism; Z86.73 Personal history of transient ischemic attack (TIA), and cerebral infarction without residual deficits; Z88.0 Allergy status to penicillin; Z88.6 Allergy status to analgesic agent; Z88.8 Allergy status to other drugs, medicaments and biological substances
CPT/HCPCS: 36415; 74177; 74183; 74330; 80053; 81003; 81015; 83690; 85025; 85610; 85730; 93005; 96361; 96374; 96375; 96376; G0378; J0696; J2001; J2270; J2405; J2550; J2704; J3010; Q9967

== ENCOUNTER 2020-01-05 10:17 | Outpatient (CLI) | payer OTHER ==
[~2020-01-05 10:17] MED LIST: Iopamidol-370 76% 500 ML 1 ML ONE
--- NOTE | 2020-01-05 11:22 | CT ---
CT ABDOMEN AND PELVIS WITH CONTRAST: HISTORY: Epigastric pain. COMPARISON: CT 11/30/2019. FINDINGS: Lung bases are clear. No pericardial effusion. There is mild dilatation of the intrahepatic and ext rahepatic biliary system, although that has improved from the 11/30/2019 exam. The common bile duct m easures up to 11 mm, previously 13-14 mm. The aortoiliac contour is nonaneurysmal. No dilated loops of large or small bowel. Mild wall thickening of the ascending colon circumferentially, likely sequelae of peristalsis as this was relatively normal just a few weeks ago. No retroperitoneal or periureteric adenopathy. No free intraperitoneal gas or fluid. No acute osseous abnormality. IMPRESSION: Partial decompression of the biliary system with mild intrahepatic and extrahepatic biliary dilatatio n, improved from the November 30, 2019, CT and MRI. POS: [facility]
== END 2020-01-05 10:18 | disposition home or self-care (01) ==
LOC: BICCT 10:17
PROVIDERS: ATTEND Surgery
DX: R10.13 Epigastric pain (principal); K83.8 Other specified diseases of biliary tract
CPT/HCPCS: 74177

== ENCOUNTER 2020-01-05 22:59 | Emergency (ER) | payer OTHER ==
[2020-01-05] MEDS ORDERED: EPINEPHrine 1 MG/ML AMP ONE (23:13)
[2020-01-05] MEDS ORDERED: diphenhydrAMINE 25 MG CAP ONE (23:13)
[2020-01-06] MEDS ORDERED: Famotidine 20 MG TAB ONE (00:33)
== END 2020-01-06 01:07 | disposition home or self-care (01) ==
LOC: ERS 22:59
DX: T78.2XXA Anaphylactic shock, unspecified, initial encounter (principal); L50.9 Urticaria, unspecified; E03.9 Hypothyroidism, unspecified; Z79.02 Long term (current) use of antithrombotics/antiplatelets; Z79.899 Other long term (current) drug therapy
CPT/HCPCS: 96372; 99284; J0171; Q0163

== ENCOUNTER 2020-07-30 23:44 | Emergency (ER) | payer OTHER ==
[2020-07-31] MEDS ORDERED: Morphine 4 MG/ML VIAL ONE (00:35)
[2020-07-31] MEDS ORDERED: traMADol HCl 50 MG TAB ONE (01:33)
--- NOTE | 2020-07-31 06:28 | RAD ---
RIGHT SHOULDER 3 VIEWS: Date: 07/30/2020 HISTORY: Shoulder pain. FINDINGS: No fracture or dislocation. Benign-appearing sclerosis in the proximal humerus to suggest enchondroma or bone infarct. IMPRESSION: No acute findings. POS: [facility]
--- NOTE | 2020-07-31 06:29 | RAD ---
RIGHT CLAVICLE 2 VIEWS: Date: 07/30/2020 HISTORY: Injury. FINDINGS: Clavicle intact. AC joint normally aligned. No fracture or dislocation. Benign-appearing sclerosis in proximal right humerus is noted. IMPRESSION: No acute findings. POS: [facility]
== END 2020-07-31 01:39 | disposition home or self-care (01) ==
LOC: ERS 23:44
DX: M25.511 Pain in right shoulder (principal); E03.9 Hypothyroidism, unspecified; Z86.73 Personal history of transient ischemic attack (TIA), and cerebral infarction without residual deficits
CPT/HCPCS: 96372; J2270

== ENCOUNTER 2022-06-26 09:48 | Emergency (ER) | payer OTHER | END 2022-06-26 13:01 | disposition home or self-care (01) | LOC: ERS 09:48 | DX: S59.001A Unspecified physeal fracture of lower end of ulna, right arm, initial encounter for closed fracture (principal); E03.9 Hypothyroidism, unspecified; Z79.899 Other long term (current) drug therapy; X58.XXXA Exposure to other specified factors, initial encounter | CPT/HCPCS: 29125 ==

== ENCOUNTER 2023-09-05 13:38 | Emergency (ER) | payer OTHER | END 2023-09-05 16:50 | disposition home or self-care (01) | LOC: ERS 13:38 | DX: M71.22 Synovial cyst of popliteal space [Baker], left knee (principal); E03.9 Hypothyroidism, unspecified; Z79.02 Long term (current) use of antithrombotics/antiplatelets; Z79.899 Other long term (current) drug therapy; Z86.73 Personal history of transient ischemic attack (TIA), and cerebral infarction without residual deficits; Z87.891 Personal history of nicotine dependence | CPT/HCPCS: 36415; 85379 ==

== ENCOUNTER 2025-05-13 03:32 | Inpatient (IN) | payer OTHER ==
[2025-05-13 03:55] LABS: #Basophils 0.09 10x3/uL (0.0-0.2); #Eosinophils 0.24 10x3/uL (0.0-0.7); #Monocytes 0.75 10x3/uL (0.11-0.59); #Neutrophils 5.19 10x3/uL (1.40-6.50); %Basophils 1.0 % (0.0-1.0); %Eosinophils 2.7 % (0.0-10.0); %Lymphocytes 28.9 % (21.0-51.0); %Monocytes 8.4 % (0.0-10.0); %Neutrophils 58.4 % (42.0-75.0); Hematocrit 35.7 % (36.0-47.0); Hemoglobin 11.7 g/dL (12.0-16.0); Mean Corpuscular Hemoglobin 27.3 pg (27.0-31.0); Mean Corpuscular Volume 83.2 fL (78.0-98.0); Platelet Count 366 10x3/uL (130-400); Red Blood Cell (RBC) Count 4.29 mill/uL (4.20-5.40); White Blood Cell (WBC) Count 8.89 10x3/uL (4.8-10.8)
[2025-05-13 04:29] LABS: ALT (SGPT) 18 U/L (Less than 34); AST (SGOT) 30 U/L (11-34); Albumin 3.3 g/dL (3.1-4.5); Alkaline Phosphatase 96 U/L (40-110); Anion Gap 16 mmol/L (10-20); BUN (Urea Nitrogen) 16 mg/dL (9.8-20.1); Bilirubin, Total 0.4 mg/dL (0.3-1.2); Calc. Creatinine Clearance 0 mL/min (70-130); Calcium 9.5 mg/dL (7.8-10.44); Carbon Dioxide 21 mmol/L (23-31); Chloride 109 mmol/L (98-107); Globulin 4.6 g/dL (2.4-3.5); Glucose 124 mg/dL (80-115); Lipase 68 U/L (8-78); Potassium 3.3 mmol/L (3.5-5.1); Sodium 143 mmol/L (136-145)
[2025-05-13] MEDS ORDERED: HYDROmorphone 0.5 MG/0.5 ML SYRINGE ONE (05:56)
[2025-05-13] MEDS ORDERED: diphenhydrAMINE 50 MG/ML VIAL ONE (05:56)
[2025-05-13] MEDS ORDERED: Famotidine/PF 20 mg/2ml Vial ONE (05:57)
[2025-05-13 09:45] LABS: Acetaminophen Less than 10 mcg/mL (Less than 10); Salicylate Less than 8.0 mg/dL (Less than 8.0)
[2025-05-13 09:50] LABS: Troponin I Less than 0.010 ng/mL (< 0.028)
[2025-05-13] MEDS ORDERED: Iopamidol 370 76% 100 ML VIAL ONE (09:57)
[2025-05-13 10:50] LABS: Cocaine Metabolite Screen Negative (Negative); THC/Cannabinoid Screen Negative (Negative); Tricyclic Screen Negative (Negative)
[2025-05-13 10:53] LABS: Bacteria/HPF None Seen HPF (None Seen); CAUTI Indications for Culture Alt mental st,lethar; Glucose, Urine (Dipstick) Normal (Negative); Leukocyte 75 Leu/uL (Negative); Protein, Urine (Dipstick) Negative (Neg-Trace); Specific Gravity, Urine 1.040 (1.002-1.036)
[2025-05-13 10:57] LABS: Urine Culture Reflex Yes Yes
[2025-05-13] MEDS ORDERED: cefTRIAXone (ROCEPHIN) 2 GM VIAL ONE (11:33)
[2025-05-13] MEDS ORDERED: Acetaminophen 325 MG TAB PO PRN (13:11)
[2025-05-13 13:41] LABS: Magnesium 2.3 mg/dL (1.6-2.6)
[2025-05-13] MEDS: Heparin 5,000 UNITS/ML VIAL SC SCH (14:40)
[2025-05-13] MEDS: Ondansetron PF 4 MG/2 ML Vial IVP PRN (14:40)
[2025-05-13] MEDS: Potassium Chloride 10 MEQ in Premix 1 BAG IVPB SCH (15:37)
[2025-05-13] MEDS: METHADONE PO SCH (19:42)
[2025-05-13] MEDS: [UNRECOGNIZED DRUG - OTHER] PO SCH (19:42)
[2025-05-13] MEDS ORDERED: Ketotifen 0.035% Ophth Soln 5 ml Bottle EA EYE PRN (21:39)
[2025-05-13] MEDS: hydrALAZINE 20 MG/ML VIAL SLOW IVP SCH (21:56)
[2025-05-14] MEDS: Dicyclomine 10 MG CAP PO SCH (01:37)
[2025-05-14 08:50] LABS: #Basophils 0.09 10x3/uL (0.0-0.2); #Eosinophils 0.16 10x3/uL (0.0-0.7); #Monocytes 0.94 10x3/uL (0.11-0.59); #Neutrophils 7.24 10x3/uL (1.40-6.50); %Basophils 0.9 % (0.0-1.0); %Eosinophils 1.5 % (0.0-10.0); %Lymphocytes 18.2 % (21.0-51.0); %Monocytes 9.1 % (0.0-10.0); %Neutrophils 69.7 % (42.0-75.0); Hematocrit 34.2 % (36.0-47.0); Hemoglobin 10.9 g/dL (12.0-16.0); Mean Corpuscular Hemoglobin 27.2 pg (27.0-31.0); Mean Corpuscular Volume 85.3 fL (78.0-98.0); Platelet Count 322 10x3/uL (130-400); Red Blood Cell (RBC) Count 4.01 mill/uL (4.20-5.40); White Blood Cell (WBC) Count 10.38 10x3/uL (4.8-10.8)
[2025-05-14 09:15] LABS: ALT (SGPT) 19 U/L (Less than 34); AST (SGOT) 31 U/L (11-34); Albumin 3.2 g/dL (3.1-4.5); Alkaline Phosphatase 87 U/L (40-110); Anion Gap 16 mmol/L (10-20); BUN (Urea Nitrogen) 16 mg/dL (9.8-20.1); Bilirubin, Total 0.4 mg/dL (0.3-1.2); Calc. Creatinine Clearance 0 mL/min (70-130); Calcium 9.1 mg/dL (7.8-10.44); Carbon Dioxide 25 mmol/L (23-31); Chloride 104 mmol/L (98-107); Globulin 4.2 g/dL (2.4-3.5); Glucose 101 mg/dL (80-115); Potassium 3.8 mmol/L (3.5-5.1); Sodium 141 mmol/L (136-145)
[2025-05-14] MEDS: cefTRIAXone\\ROCEPHIN 1 GM in Sodium Chloride 0.9% 100 ML IVPB SCH (14:32)
[2025-05-15 05:50] LABS: #Basophils 0.07 10x3/uL (0.0-0.2); #Eosinophils 0.21 10x3/uL (0.0-0.7); #Monocytes 1.15 10x3/uL (0.11-0.59); #Neutrophils 5.87 10x3/uL (1.40-6.50); %Basophils 0.8 % (0.0-1.0); %Eosinophils 2.3 % (0.0-10.0); %Lymphocytes 18.3 % (21.0-51.0); %Monocytes 12.8 % (0.0-10.0); %Neutrophils 65.2 % (42.0-75.0); Hematocrit 31.7 % (36.0-47.0); Hemoglobin 9.8 g/dL (12.0-16.0); Mean Corpuscular Hemoglobin 26.7 pg (27.0-31.0); Mean Corpuscular Volume 86.4 fL (78.0-98.0); Platelet Count 279 10x3/uL (130-400); Red Blood Cell (RBC) Count 3.67 mill/uL (4.20-5.40); White Blood Cell (WBC) Count 9.00 10x3/uL (4.8-10.8)
[2025-05-15 06:09] LABS: Anion Gap 15 mmol/L (10-20); BUN (Urea Nitrogen) 12 mg/dL (9.8-20.1); Calc. Creatinine Clearance 0 mL/min (70-130); Calcium 8.8 mg/dL (7.8-10.44); Carbon Dioxide 24 mmol/L (23-31); Chloride 104 mmol/L (98-107); Glucose 93 mg/dL (80-115); Potassium 3.5 mmol/L (3.5-5.1); Sodium 139 mmol/L (136-145)
[2025-05-15] MEDS: Simethicone Chewable 80 MG TAB PO PRN (10:19)
[2025-05-15 14:01] VITALS: BP 105/69; TEMP 98.9
== END 2025-05-15 13:45 | disposition home or self-care (01) | DRG 682 ==
LOC: ERS 03:32 → T4-A 12:22 → OBSVTOIN 05-14 13:03
PROVIDERS: ADMIT Family Medicine; ATTEND Internal Medicine
DX: N17.9 Acute kidney failure, unspecified (principal); G93.41 Metabolic encephalopathy; E87.20 Acidosis, unspecified; N39.0 Urinary tract infection, site not specified; E03.9 Hypothyroidism, unspecified; Z91.041 Radiographic dye allergy status; Z88.0 Allergy status to penicillin; Z88.8 Allergy status to other drugs, medicaments and biological substances; Z79.899 Other long term (current) drug therapy; Z90.49 Acquired absence of other specified parts of digestive tract; Z90.710 Acquired absence of both cervix and uterus; E87.6 Hypokalemia; G89.4 Chronic pain syndrome; D89.40 Mast cell activation, unspecified; Z79.01 Long term (current) use of anticoagulants; M54.50 Low back pain, unspecified
CPT/HCPCS: 36415; 70450; 74177; 80048; 80053; 80306; 80307; 81001; 83605; 83690; 83735; 84100; 84443; 84484; 85025; 87040; 87086; 93005; J0360; J0696; J1171; J1200; J1308; J1644; J2060; J2270; J2405; J2919; J3010; J3480; J7120; Q9967

== ENCOUNTER 2025-06-14 01:40 | Emergency (ER) | payer OTHER ==
[2025-06-14 03:04] LABS: Bacteria/HPF None Seen HPF (None Seen); CAUTI Indications for Culture Pelvic or flank pain; Glucose, Urine (Dipstick) Normal (Negative); Leukocyte 25 Leu/uL (Negative); Protein, Urine (Dipstick) 30 mg/dL (Neg-Trace); RBC/HPF 0-3 HPF (0-3); Specific Gravity, Urine 1.022 (1.002-1.036); WBC/HPF 0-3 HPF (0-3)
[2025-06-14 03:06] LABS: Urine Culture Reflex No No
[2025-06-14] MEDS ORDERED: Pantoprazole 40 MG DR.TAB ONE (04:52)
[2025-06-14 05:04] LABS: #Basophils 0.04 10x3/uL (0.0-0.2); #Eosinophils 0.07 10x3/uL (0.0-0.7); #Monocytes 1.06 10x3/uL (0.11-0.59); #Neutrophils 8.62 10x3/uL (1.40-6.50); %Basophils 0.3 % (0.0-1.0); %Eosinophils 0.6 % (0.0-10.0); %Lymphocytes 16.8 % (21.0-51.0); %Monocytes 9.0 % (0.0-10.0); %Neutrophils 73.0 % (42.0-75.0); Hematocrit 34.2 % (36.0-47.0); Hemoglobin 10.9 g/dL (12.0-16.0); Mean Corpuscular Hemoglobin 27.5 pg (27.0-31.0); Mean Corpuscular Volume 86.1 fL (78.0-98.0); Platelet Count 307 10x3/uL (130-400); Red Blood Cell (RBC) Count 3.97 mill/uL (4.20-5.40); White Blood Cell (WBC) Count 11.81 10x3/uL (4.8-10.8)
[2025-06-14 05:20] LABS: ALT (SGPT) 10 U/L (Less than 34); AST (SGOT) 21 U/L (11-34); Albumin 3.5 g/dL (3.1-4.5); Alkaline Phosphatase 62 U/L (40-110); Anion Gap 17 mmol/L (10-20); BUN (Urea Nitrogen) 10 mg/dL (9.8-20.1); Bilirubin, Total 0.5 mg/dL (0.3-1.2); Calc. Creatinine Clearance 0 mL/min (70-130); Calcium 9.7 mg/dL (7.8-10.44); Carbon Dioxide 19 mmol/L (23-31); Chloride 104 mmol/L (98-107); Globulin 3.5 g/dL (2.4-3.5); Glucose 116 mg/dL (80-115); Lipase 29 U/L (8-78); Potassium 3.5 mmol/L (3.5-5.1); Sodium 136 mmol/L (136-145)
== END 2025-06-14 06:26 | disposition home or self-care (01) ==
LOC: ERS 01:40
DX: R10.9 Unspecified abdominal pain (principal); E03.9 Hypothyroidism, unspecified; Z86.73 Personal history of transient ischemic attack (TIA), and cerebral infarction without residual deficits; Z79.899 Other long term (current) drug therapy
CPT/HCPCS: 74176; 80053; 81001; 83690; 85025

== ENCOUNTER 2025-08-10 06:31 | Day surgery (SDC) | payer OTHER ==
[2025-08-09 09:25] VITALS: BMI 22.1
[2025-08-10] MEDS ORDERED: Iopamidol 45 ML ONE (08:43)
[2025-08-10] MEDS ORDERED: SUCCINYLCHOLINE/SOD CL,ISO/PF 200 MG/10 ML SYRINGE FS ONE (08:55)
[2025-08-10] MEDS ORDERED: diphenhydrAMINE 50 MG/ML VIAL ONE (08:55)
[2025-08-10] MEDS ORDERED: Rocuronium Bromide 10 MG/ML (10ML VIAL) ONE (08:55)
[2025-08-10] MEDS ORDERED: PROPOFOL 200 MG/20 ML VIAL ONE (09:13)
[2025-08-10] MEDS ORDERED: Lidocaine 1% PF 5 ML VIAL ONE (09:13)
[2025-08-10] MEDS ORDERED: SUGAMMADEX SODIUM 200 MG/2 ML VIAL ONE (10:22)
[2025-08-10] MEDS ORDERED: Ondansetron PF 4 MG/2 ML Vial ONE (10:22)
== END 2025-08-10 12:45 | disposition home or self-care (01) ==
LOC: SDC 06:31
PROVIDERS: ATTEND Internal Medicine Gastroenterology
PROC: 0F798ZZ Dilation of Common Bile Duct, Via Natural or Artificial Opening Endoscopic (ICD-10-PCS; principal; 2025-08-10)
PROC: 0FC98ZZ Extirpation of Matter from Common Bile Duct, Via Natural or Artificial Opening Endoscopic (ICD-10-PCS; principal; 2025-08-10)
DX: K80.50 Calculus of bile duct without cholangitis or cholecystitis without obstruction (principal); Z86.718 Personal history of other venous thrombosis and embolism; Z86.73 Personal history of transient ischemic attack (TIA), and cerebral infarction without residual deficits; Z90.49 Acquired absence of other specified parts of digestive tract; Z88.8 Allergy status to other drugs, medicaments and biological substances; Z88.0 Allergy status to penicillin; Z87.891 Personal history of nicotine dependence; Z79.02 Long term (current) use of antithrombotics/antiplatelets; Z79.899 Other long term (current) drug therapy
CPT/HCPCS: 74330; C1725; C1726; J1100; J1200; J2405; J2704; J3010; Q9967